=== PATIENT | female | born 1955 | race Caucasian/White ===

== ENCOUNTER 2016-04-05 06:27 | Emergency (ER) | payer OTHER ==
[~2016-04-05] VITALS: Ht 160 cm; Wt 76.0 kg
[2016-04-05 06:29] VITALS: BP 179/84; PULSE 104; RESP 16; TEMP 98.2; O2SAT 98
[2016-04-05] MEDS ORDERED: POLY10O RIGHT EYE (07:16)
--- NOTE | 2016-04-05 07:17 | PD ---
HPI Chief Complaint: Eye Problems/Injury Time Seen by Provider: 07:14 Travel History International Travel<30 days: No Contact w/Intl Traveler<30days: No Traveled to known affect area: No History of Present Illness HPI 61-year-old female presents to the emergency Department with complaint of right eye irritation and drainage since Sunday night. She was seen on Sunday at urgent care and was given gentamicin for conjunctivitis, which has not improved her symptoms. Reports worsening of symptoms with purulent eye drainage, scleral erythema, and irritation. She did go fishing on morning and the wind was blowing and she may have gotten something in her eye. She also has had nasal congestion for the last few days. Denies fever, chills, nausea, vomiting. Denies sore throat, cough, ear pain. Denies change in vision. Denies eye pain. Wears corrective lenses; does not wear contacts. No known aggravating or relieving factors. Has called to make an appointment with ophthalmology and is waiting for return phone call for scheduling. History of hypertension. No known allergies. No other modifying factors or associated signs and symptoms. PFSH Past Medical History Medical History: Denies Significant Hx Diminished Hearing: No Tetanus Vaccination: < 5 Years Influenza Vaccination: Yes ?: Not Past Surgical History Surgical History: No Previous Surgery Social History Alcohol Use: No Tobacco Use: No Substance Use: No Allergies-Medications (Allergen,Severity, Reaction): Coded Allergies: No Known Allergies (Unverified , 04/05/16) Reported Meds & Prescriptions Reported Meds & Active Scripts Active Polytrim Opth Drops (Polymyxin/Trimethoprim Sulfate) 10,000-0.1 Unit/Ml-% Soln 2 Drop RIGHT EYE Q6HR 7 Days Review of Systems Except as stated in HPI: all other systems reviewed are Neg Physical Exam Narrative GENERAL: Well-nourished, well-developed female patient, in no acute distress; afebrile, nontoxic-appearing SKIN: Warm and dry. HEAD: Atraumatic. Normocephalic. EYES: Pupils equal and round at 3 mm with brisk reaction. PERRLA. EOMI. visual acuity left 20/30; right 20/40; without correction. Right lid eversion with no foreign body noted. Right eye with scleral erythema and no lid edema. No orbital tenderness, erythema or cellulitis. Right eye without photophobia. No consensual photophobia. No scleral icterus. Purulent drainage. Sagastume lamp exam reveals a possible foreign body at the 3 o'clock position at the egde of the iris involving the sclera; there is a accumulation of white matter that responds to the fluorescein on sagastume lamp exam; the patient does not recall seeing that in her eye prior. ENT: Mucosa pink and moist. Airway patent. NECK: Trachea midline. CARDIOVASCULAR: Regular rate. RESPIRATORY: No accessory muscle use. GASTROINTESTINAL: Round. NEUROLOGICAL: Awake and alert. Oriented 3. No obvious cranial nerve deficits. Motor grossly within normal limits. Normal speech. PSYCHIATRIC: Appropriate mood and affect; insight and judgment normal. Data Data Last Documented VS Vital Signs Date Time Temp Pulse Resp B/P Pulse Ox O2 Delivery O2 Flow Rate FiO2 04/05/16 06:32 16 04/05/16 06:29 98.2 104 179/84 98 MDM Medical Decision Making Medical Screen Exam Complete: Yes Emergency Medical Condition: Yes Medical Record Reviewed: Yes Differential Diagnosis Foreign body, corneal ulceration, viral conjunctivitis, bacterial conjunctivitis , treatment failure Narrative Course 61-year-old female with possible foreign body to her right eye. She was previously treated for conjunctivitis to the right eye with gentamicin with worsening of symptoms. Instructed patient to stop gentamicin. Prescribed Polytrim eyedrops for home. Discussed possible viral conjunctivitis. Instructed patient to follow up with ophthalmology. She does have a phone call out to ophthalmology and is waiting for return phone call for scheduling. Patient verbalized understanding and agreement with treatment plan. Patient is medically cleared and stable for discharge. Discussed reasons to return to the emergency department. Instructed patient to follow up with primary care provider. Patient agrees with treatment plan. The patients vital signs are stable and the patient is stable for outpatient follow-up and treatment. Patient discharged home, stable and in no acute distress. Diagnosis Primary Impression: Irritation of right eye Referrals: [facility] Physician Patient Instructions: Conjunctivitis (ED), Eye Foreign Body (ED), General Instructions Departure Forms: Tests/Procedures, Work Release Enter return to work date: Apr 05, 2016 Additional Instructions: Conjunctivitis is contagious Use antibiotic drops as prescribed Apply warm or cool compresses to both eyes for a few minutes several times daily to minimize irritation Avoid triggers, such as allergens, that may irritate your eyes Wash your hands frequently Do not share washcloths, towels, pillows, or any other material that has touched your eyes with any other household members Follow-up with your primary care provider Follow-up with ophthalmology Return to the emergency department immediately with worsening of symptoms Med/Other Pt SpecificInfo: Prescription(s) given Scripts Polymyxin B-Trimethoprim Opth Drops (Polytrim Opth Drops)10,000-0.1 Unit/Ml-% Soln2 Drop RIGHT EYE Q6HR 7 Days Ref 0 Prov:Tiffanie Guerra 04/05/16 Disposition: 01 DISCHARGE HOME Condition: Stable Tiffanie Guerra Apr 05, 2016 07:17
[2016-04-06] MEDS ORDERED: LISI10TA3 PO (15:47)
[2016-04-06] MEDS ORDERED: MULTTAB67 PO (15:47)
== END 2016-04-05 07:24 | disposition home or self-care (01) ==
LOC: NEPB 06:27
DX: H10.9 Unspecified conjunctivitis (principal); I10 Essential (primary) hypertension
CPT/HCPCS: 99283